=== PATIENT | male | born 1945 | race Two or more races ===

== ENCOUNTER 2017-07-28 20:11 | Inpatient (IN) | payer MEDICARE, OTHER ==
[~2017-07-28] VITALS: Ht 165.1 cm; Wt 70.3 kg
--- NOTE | 2017-07-28 20:15 | NUR ---
BHARAT FROM [facility] DT ETOH- PATIENT RECEIVED AAO4. HOWEVER PATIENT IS NOTED TO BE TALKATIVE. POSSIBLY DT ETOH. SKIN IS WARM TO TOUCH AND NON DIAPHORETIC. AFEBRILE. VSS
--- NOTE | 2017-07-28 20:24 | NUR ---
DR. DUENAS AT BEDSIDE FOR EVALUATION
--- NOTE | 2017-07-28 20:39 | NUR ---
URINE SAMPLE SENT TO LAB
--- NOTE | 2017-07-28 20:39 | NUR ---
IV ACCESSED TO LAC 20. BLOOD SAMPLE SENT
[2017-07-28 20:45] LABS: BASOPHILS # (AUTO) 0.1 /CMM (0.0-0.2); BASOPHILS % (AUTO) 0.7 % (0.0-2.0); EOSINOPHILS # (AUTO) 0.2 /CMM (0.0-0.7); HEMATOCRIT 29 % (39-51); HEMOGLOBIN 9.9 g/dL (13.5-17.5); LYMPHOCYTES % (AUTO) 39.4 % (20.0-44.0); MEAN CORPUSCULAR HEMOGLOBIN 31 PG (26.0-33.0); MEAN CORPUSCULAR HGB CONC 34 g/dl (31.0-36.0); MEAN CORPUSCULAR VOLUME 92 fL (80-96); MONOCYTES # (AUTO) 0.7 /CMM (0.1-1.30); MONOCYTES % (AUTO) 8.5 % (2.0-12.0); NEUTROPHILS # (AUTO) 3.7 /CMM (1.8-8.9); NEUTROPHILS % (AUTO) 48.4 % (43.0-81.0); PLATELET COUNT (AUTO) 231 /CMM (150-450); RDW COEFFICIENT OF VARIATION 12.3 (11.5-15.0); WHITE BLOOD COUNT (AUTO) 7.7 K/uL (4.3-11.0)
[2017-07-28 20:53] LABS: CALCIUM, SERUM 7.9 mg/dL (8.5-10.1); CARBON DIOXIDE 21 mmol/L (21-32); CHLORIDE 99 mmol/L (98-107); CREATININE 1.4 mg/dL (0.6-1.3); GLUCOSE 97 mg/dL (74-106); POTASSIUM 4.1 mmol/L (3.5-5.1); SODIUM SERUM 132 mmol/L (136-145); UREA NITROGEN, BLOOD 43 mg/dL (7-18)
[2017-07-28 20:57] LABS: INR 1.04 (0.87-1.13); PROTHROMBIN TIME 10.8 SECS (9.5-12.7)
--- NOTE | 2017-07-28 20:58 | NUR ---
PATIENTS SON CALLED FOR UPDATE. CLAYTON .
[2017-07-28] MEDS ORDERED: IV NS 0.9% 500 ML BAG IV ONE (21:30)
--- NOTE | 2017-07-28 22:41 | NUR ---
PATIENT LIVES IN [address] HOWEVER, PER PATIENT'S SON CLAYTON--[phone] , PATIENT WILL NO ALIYAH KERI E ACCEPTED THERE DT MULTIPLE EPISODE OF ALCOHOL INTOXICATION. PATIENT WILL BE REFERED TO RESIDENT IN DIAGNOSTIC RADIOLOGY IN AM.
--- NOTE | 2017-07-28 23:33 | NUR ---
Patient on bed, resting comfortably. Connected to tele monitor., vss
--- NOTE | 2017-07-29 04:00 | NUR ---
pt resting comfrotably in [facility]. no signs of distress noted. pt vital signs normal. will cont to monitor pt.
--- NOTE | 2017-07-29 07:20 | NUR ---
PATIENT NO LONGER IV ACCESS, IV HAS BEEN PULLED OUT BY PATIENT. PER DR. CARPENTER, PATIENT WILL NEED IV ACCESS. WILL IMPLEMENT.
--- NOTE | 2017-07-29 07:22 | NUR ---
Paged [facility] -- tongue stitcher Mynor Sahu.
--- NOTE | 2017-07-29 07:25 | NUR ---
NEW IV STARTED ON LAC, 18 G.
[2017-07-29] MEDS ORDERED: CHLORDIAZEPOXIDE HCL 25 MG CAPSULE ONE (07:27)
[2017-07-29] MEDS ORDERED: CHLORDIAZEPOXIDE HCL 25 MG CAPSULE PO ONE (07:30)
[2017-07-29] MEDS ORDERED: IV NS 0.9% 1,000 ML BAG IV ONE (07:30)
[2017-07-29 07:53] LABS: CARBON DIOXIDE 22 mmol/L (21-32); CHLORIDE 107 mmol/L (98-107); CREATININE 1.3 mg/dL (0.6-1.3); GLUCOSE 85 mg/dL (74-106); POTASSIUM 4.4 mmol/L (3.5-5.1); SODIUM SERUM 141 mmol/L (136-145); UREA NITROGEN, BLOOD 33 mg/dL (7-18)
[2017-07-29 07:59] LABS: ALANINE AMINOTRANSFERASE 22 U/L (12-78); ALKALINE PHOSPHATASE 77 U/L (46-116); ASPARTATE AMINOTRANSFERASE 20 U/L (15-37); BILIRUBIN,DIRECT 0.1 mg/dL (0.0-0.2); BILIRUBIN,TOTAL 0.4 mg/dL (0.2-1.0); LIPASE 119 U/L (73-393); TOTAL PROTEIN, SERUM 8.2 g/dL (6.4-8.2)
--- NOTE | 2017-07-29 08:01 | NUR ---
Paged [facility] -- fish boning machine feeder Mynor Sahu.
[2017-07-29] MEDS ORDERED: CLON0.2T PO (08:15)
[2017-07-29] MEDS ORDERED: BENA10TA2 PO (08:15)
--- NOTE | 2017-07-29 08:42 | NUR ---
PT TRANPORTED TO MS BED WITH WHEELCHAIR BY EMT
[2017-07-29 09:00] VITALS: BP 157/66
--- NOTE | 2017-07-29 09:00 | NUR ---
MS RN RECEIVED A NEW ADMISSION FROM ER, 71 YEAR OLD MALE, CAME IN W/ DX OF DEHYDRATION, AWAKE,ALERT,ORIENTED X3,NOT IN ANY FORM OF DISTRESS, RESPIRATIONS EVEN AND UNLABORED,NO SOB NOTED. LUNGS ARE CLEAR,ABDOMEN SOFT,POSITIVE BOWEL SOUNDS, DENIES PAIN AT THIS TIME.WILL MONITOR PATIENT'S CONDITION.
[2017-07-29] MEDS ORDERED: IV NS 0.9% 1,000 ML IV PRN (09:03)
[2017-07-29] MEDS ORDERED: ACETAMINOPHEN 325 MG TABLET PO PRN (09:30)
[2017-07-29] MEDS ORDERED: HYDROCODONE/APAP 5/325MG 1 EACH TABLET PO PRN (09:30)
[2017-07-29] MEDS ORDERED: MAGNESIUM HYDROXIDE 30 ML UDC PO PRN (09:30)
[2017-07-29] MEDS ORDERED: MAG HYDROX/AL HYDROX/SIMETH 30 ML UDC PO PRN (09:30)
[2017-07-29] MEDS ORDERED: Z GUARD REMEDY 2 OZ OINT TP PRN (09:30)
[2017-07-29] MEDS ORDERED: ONDANSETRON HCL/PF 4 MG/2 ML VIAL IVP PRN (09:30)
[2017-07-29] MEDS: CLONIDINE HCL 0.1 MG TABLET PO SCH ×2 (12:42→17:00)
--- NOTE | 2017-07-29 13:00 | NUR ---
MS RN WAS SEEN BY JOEY Guido/ ORDERS MADE AND CARRIED OUT.
--- NOTE | 2017-07-29 14:00 | NUR ---
MS RN WAS SEEN BY PT, WALKS AROUND W/ WALKER,TOLERATED WELL.
--- NOTE | 2017-07-29 15:10 | NUR ---
Social service consult requested by VIDHI Sahu for alcohol abuse. Pt. is a 71 year old male who was admitted to [facility] for dehydration. SW met with pt. bedside. Pt. is alert and oriented x 3 with bouts of confusion. Pt. states he lives in an assisted living located at [address] [place] [address] in [place]. Pt. has two sons Talib and Ameya who are his emergency contact. SW inquired with pt. if he drinks alcohol and how often. Pt. states he drinks a couple of cans of beer but doesn't see what the big deal is. Pt. appears to be in denial of his alcohol abuse. Pt. was found intoxicated on several occasions at his assisted living and according to his son, they are not accepting pt. back. Pt. is open to going to a correction facility. Pt. states he use to drink hard liquor 10 years ago and quit. Pt. quit smoking cigarettes 10 years ago as well. Pt. declined resources to inpatient and outpatient alcohol treatment programs and states he doesn't have any issues. SW is available if needed and no other social service needs are required at this time. Case management is aware regarding rehab placement if deemed appropriate.
[2017-07-29 16:00] VITALS: BP 119/50
--- NOTE | 2017-07-29 18:25 | NUR ---
MS RN ON BED, NO DISTRESS NOTED, ALL NEEDS ATTENDED.
--- NOTE | 2017-07-29 19:20 | NUR ---
RN OPEN NOTES RECEIVED PATIENT AWAKE IN BED. A/O X4. NO SIGNS OF DISTRESS OR DISCOMFORT. BREATHING EVEN AND UNLABORED. IV ACCESS IN LAC WITH NS INFUSING, PATENT AND INTACT, NO SIGNS OF REDNESS OR INFILTRATION. BED IN LOW LOCKED POSITION WITH SIDE RAILS X2. CALL LIGHT WITHIN REACH. WILL CONTINUE TO MONITOR.
[2017-07-29 20:00] VITALS: BP 101/51
[2017-07-29 20:04] VITALS: BP 101/51
--- NOTE | 2017-07-30 02:34 | NUR ---
RN NOTES PATIENT REFUSED IVF X3, STATES SAID HE IS ONLY SLIGHTLY DEHYDRATED AND HE DOES NOT WANT ANOTHER BAG OF FLUIDS. PATIENT EDUCATION REINFORCED. WILL CONTINUE TO MONITOR.
--- NOTE | 2017-07-30 06:41 | NUR ---
RN CLOSING NOTES PATIENT RESTING IN BED, EASILY AROUSABLE TO NAME. A/O X3. NO SIGNS OF DISTRESS OR DISCOMFORT. BREATHING EVEN AND UNLABORED. IV ACCESS IN LAC, PATENT AND INTACT, NO SIGNS OF REDNESS OR INFILTRATION. ALL NEEDS MET. NO SIGNIFICANT CHANGES THROUGH THE NIGHT. BED IN LOW LOCKED POSITION WITH SIDE RAILS X2. CALL LIGHT WITHIN REACH. WILL ENDORSE TO AM SHIFT FOR CAMILA.
--- NOTE | 2017-07-30 07:39 | NUR ---
MS RN OPENING NOTE PATIENT IS ALERT AND ORIENTEDx4. NO PAIN AT THIS TIME. NO SOB OR DISTRESS NOTED. CALL LIGHT WITHIN REACH. SAFETY MEASURES IMPLEMENTED. ABLE TO COMMUNICATE NEEDS. IV INTACT AND PATENT NO REDNESS OR SWELLING NOTED. REFUSING IV FLUIDS AT THIS TIME, EXPLAINED RISKS AND BENEFITS BUT PATIENT STILL REFUSING. WILL CONTINUE TO MONITOR
[2017-07-30 08:00] VITALS: BP 137/63
[2017-07-30] MEDS: CLONIDINE HCL 0.1 MG TABLET PO SCH ×2 (08:18→16:39)
[2017-07-30] MEDS: BENAZEPRIL HCL 10 MG TABLET PO SCH (08:18)
[2017-07-30 11:44] LABS: BASOPHILS % (AUTO) 0.4 % (0.0-2.0); EOSINOPHILS # (AUTO) 0.3 /CMM (0.0-0.7); EOSINOPHILS % (AUTO) 4.5 % (0.0-6.0); HEMATOCRIT 32 % (39-51); HEMOGLOBIN 10.5 g/dL (13.5-17.5); LYMPHOCYTES # (AUTO) 1.5 /CMM (0.8-4.8); LYMPHOCYTES % (AUTO) 23.4 % (20.0-44.0); MEAN CORPUSCULAR HEMOGLOBIN 31 PG (26.0-33.0); MEAN CORPUSCULAR HGB CONC 33 g/dl (31.0-36.0); MEAN CORPUSCULAR VOLUME 93 fL (80-96); MONOCYTES # (AUTO) 0.3 /CMM (0.1-1.30); NEUTROPHILS # (AUTO) 4.2 /CMM (1.8-8.9); NEUTROPHILS % (AUTO) 67.7 % (43.0-81.0); PLATELET COUNT (AUTO) 157 /CMM (150-450); RDW COEFFICIENT OF VARIATION 13.6 (11.5-15.0); RED BLOOD CELL COUNT(AUTO) 3.41 MIL/uL (4.5-6.0); WHITE BLOOD COUNT (AUTO) 6.3 K/uL (4.3-11.0)
[2017-07-30 11:58] LABS: CALCIUM, SERUM 8.4 mg/dL (8.5-10.1); CARBON DIOXIDE 26 mmol/L (21-32); CHLORIDE 109 mmol/L (98-107); CREATININE 1.2 mg/dL (0.6-1.3); GLUCOSE 117 mg/dL (74-106); MAGNESIUM 1.8 mg/dL (1.8-2.4); PHOSPHORUS 2.7 mg/dL (2.5-4.9); POTASSIUM 4.6 mmol/L (3.5-5.1); SODIUM SERUM 143 mmol/L (136-145); UREA NITROGEN, BLOOD 27 mg/dL (7-18)
[2017-07-30 13:01] LABS: IRON, SERUM 104 ug/dl (50-175); TOTAL IRON BINDING CAPACITY 170 ug/dl (250-450)
[2017-07-30 13:27] LABS: CHOLESTEROL 155 mg/dL (<200); HDL CHOLESTEROL 97 mg/dL (40-60); LDL 52 mg/dL (0-99); THYROID STIMULATING HORMONE 5.986 uIU/mL (0.358-3.74); TRIGLYCERIDES 54 mg/dL (30-150)
[2017-07-30 16:00] VITALS: BP 98/52
--- NOTE | 2017-07-30 18:47 | NUR ---
MS RN CLOSING NOTE PATIENT IS ALERT AND ORIENTED x4. PERIODS OF CONFUSION. REDIRECTABLE. NO PAIN AT THIS TIME. NO SOB OR DISTRESS NOTED. CALL LIGHT WITHIN REACH AT ALL TIMES. SAFETY MEASURES IMPLEMENTED. ABLE TO COMMUNICATE NEEDS. IV INTACT AND PATENT NO REDNESS OR SWELLING NOTED. URINE AND STOOL SAMPLE COLLECTED. NOTIFIED LAB FOR PICKUP. ABLE TO COMMUNICATE NEEDS. CASE MANAGEMENT FOLLOWING UP WITH BOARD AND CARE FOR PENDING PLACEMENT-PLEASE FOLLOW UP. WILL ENDORSE TO SAIL REPAIRER NURSE.
--- NOTE | 2017-07-30 19:30 | NUR ---
MS RN NOTE PATIENT RECEIVED IN BED. AWAKE ALERT AND ORIENTED. DENIES ANY PAIN OR DISCOMFORT. IV SITE TO LAC INTACT. NO REDNESS NOTED. BED LOCKED AND IN LOWEST POSITION, SIDE RAILS UP, CALL LIGHT WITHIN REACH. WILL CONTINUE TO MONITOR.
[2017-07-30 20:00] VITALS: BP 124/65
[2017-07-30 22:00] VITALS: BP 124/65
--- NOTE | 2017-07-31 07:41 | NUR ---
JAELYN POLANCO RN: INITIAL NOTES RECEIVED PT ALERT AND ORIENTED X4. ON REGULAR DIET. NO DISTRESS NOTED. NO PAIN NOTED. NO SOB NOTED. LAC #18. NO IVF RUNNING. RESTING COMFORTABLY IN BED. CALL LIGHT WITHIN REACH.
[2017-07-31 08:00] VITALS: BP 141/69
[2017-07-31] MEDS: BENAZEPRIL HCL 10 MG TABLET PO SCH (08:54)
[2017-07-31] MEDS: CLONIDINE HCL 0.1 MG TABLET PO SCH ×2 (08:54→17:00)
--- NOTE | 2017-07-31 11:51 | NUR ---
IAIN,SYSTEMS MECHANIC CALLED SAYING THAT THE PT WASN'T ACCEPTED IN [facility] AND WILL BE EVALUATED BY ANOTHER STAFF FROM A DIFFERENT INDEPENDENT LIVING FACILITY TOMORROW AT 0900 WHICH IS CALLED [facility].
--- NOTE | 2017-07-31 14:39 | NUR ---
TERRY met with pt's son Ameya and gave him the following resources: list of sober living homes in [facility]; [facility] ; and list of substance abuse program in [facility] which include [facility] , [facility] . Ameya informed TERRY that pt. has been going in and out of nursing homes and independent livings due to his alcoholism. Pt. to be evaluated tomorrow at 9AM by Kenneth from a sober living home.
[2017-07-31 16:00] VITALS: BP 109/58
--- NOTE | 2017-07-31 18:17 | NUR ---
MED SURGE RN: CLOSING NOTE PT ALERT AND ORIENTED X3. TOOK ALL MEDICATIONS ON TIME. NO ADVERSE REACTIONS NOTED. NO PAIN NOTED. NO DISTRESS NOTED. ABLE TO AMBULATE INDEPENDENTLY. PT REFUSED LAB DRAW X3. EXPLAINED ALL THE RISKS AND BENEFITS. NO N/V NOTED. AWAITING PLACEMENT FOR D/C. RESTING COMFORTABLY IN BED. CALL LIGHT WITHIN REACH.
--- NOTE | 2017-07-31 19:29 | NUR ---
MS/RN OPENING NOTES PATIENT SITTING IN CHAIR, READING A BOOK AND WALKING. INFORMED AND REMIND FOR SAFETY TO PREVENT FALL. ALERT X 2. RESTING COMFORTABLY IN CHAIR WHILE READING A BOOK. NO S/S OF DISCOMFORT. RESPIRATION EVEN AND UNLABORED. WILL CONTINUE TO MONITOR,
[2017-07-31 19:34] VITALS: BP 126/69
[2017-07-31 20:00] VITALS: BP 126/69
--- NOTE | 2017-08-01 06:20 | NUR ---
311-1 ms/rn closing notes PATIENT ABLE TO MAINTAIN ACTIVITY LEVEL BY READING A BOOK, PROVIDED FLUIDS. SLEPT ATLEAST 5 TO 6 HOURS, RESPIRATIONS GOO. WILL CONTINUE TO MONITOR. WILL ENDORSE TO AM RN REGARDING CAMILA.
--- NOTE | 2017-08-01 07:18 | NUR ---
MS/RN OPENING NOTE PATIENT RECEIVED IN BED IN NO ACUTE SIGNS OF DISTRESS. ALERT AND ORIENTED x4, NO C/O PAIN OR DISCOMFORTS AT THIS TIME. ON ROOM AIR, BREATHING EVEN AND UNLABORED. CALL LIGHT WITHIN REACH. SAFETY MEASURES IMPLEMENTED. IV ACCESS ON LEFT AC INTACT AND PATENT, NO REDNESS OR SWELLING NOTED. WILL CONTINUE TO MONITOR
[2017-08-01 08:00] VITALS: BP 107/47
[2017-08-01] MEDS: BENAZEPRIL HCL 10 MG TABLET PO SCH (09:00)
[2017-08-01] MEDS: CLONIDINE HCL 0.1 MG TABLET PO SCH ×2 (09:00→16:33)
--- NOTE | 2017-08-01 10:29 | NUR ---
RN NOTES PATIENT BEING TAKEN TO O.R FOR EGD VIA HER BED AT THIS TIME. PRE-OP CHECKLIST DONE.
[2017-08-01 16:00] VITALS: BP 110/58
--- NOTE | 2017-08-01 19:05 | NUR ---
M/S RN CLOSING NOTE PT RESTING IN BED ALERT AND ORIENTED X3. NO SIGNIFICANT CHANGES NOTED THROUGHOUT THE DAY. TOOK ALL MEDICATIONS WITH NO ADVERSE REACTIONS NOTED. NO PAIN VOICED DURING TOUR. ON ROOM AIR, NO SOB OR ACUTE DISTRESS NOTED. AWAITING PLACEMENT FOR D/C. CALL LIGHT WITHIN REACH. ALL NEEDS ATTENDED WELL. WILL ENDORSED TO GUEST SERVICE MANAGER NURSE FOR CAMILA.
--- NOTE | 2017-08-01 20:00 | NUR ---
MS/RN RECEIVE PATIENT AWAKE, ALERT, ORIENTED, COMFORTABLE, NO C/O PAIN, NO DISTRESS NOTED, CALL LIGHT IN REACH. WILL MONITOR.
[2017-08-01 20:28] VITALS: BP 134/67
--- NOTE | 2017-08-02 | NUR ---
MS/RN PATIENT IS SLEEPING, EASILY AROUSABLE, APPEAR COMFORTABLE, NO SIGNS OF DISTRESS NOTED, CALL LIGHT IN REACH. WILL CONTINUE TO MONITOR.
--- NOTE | 2017-08-02 06:50 | NUR ---
MS/RN PATIENT IS AWAKE, ALERT, ORIENTED, COMFORTABLE, NO CHANGE IN CONDITION, ALL NEEDS ATTENDED AT THIS TIME. WILL CONTINUE TO MONITOR.
--- NOTE | 2017-08-02 07:28 | NUR ---
MS/RN OPENING NOTES PATIENT RECEIVED AWAKE IN BED IN NO ACUTE SIGNS OF DISTRESS. ALERT AND ORIENTED x4, AMBULATORY AND DENIES ANY PAIN OR DISCOMFORTS AT THIS TIME. ON ROOM AIR, BREATHING EVEN AND UNLABORED. IV ACCESS ON LEFT AC INTACT AND PATENT, NO REDNESS OR SWELLING NOTED. CALL LIGHT WITHIN REACH. SAFETY MEASURES IN PLACED. WILL CONTINUE TO MONITOR PT ACCORDINGLY.
[2017-08-02 08:00] VITALS: BP 150/64
[2017-08-02 08:25] VITALS: BP 150/64
[2017-08-02] MEDS: BENAZEPRIL HCL 10 MG TABLET PO SCH (08:40)
[2017-08-02] MEDS: CLONIDINE HCL 0.1 MG TABLET PO SCH ×2 (08:40→16:16)
[2017-08-02 16:00] VITALS: BP 111/60
[2017-08-02 16:16] VITALS: BP 111/60
--- NOTE | 2017-08-02 17:44 | NUR ---
MS/RN DISCHARGED NOTES PATIENT DISCHARGED TO [facility], [id number], [place] [address], TEL [phone] IN STABLE CONDITION. LEFT UNIT AT [address] ACCOMPANIED BY THIS IDENTIFICATION AND RECORDS COMMANDER TO A WAITING TAXI OUTSIDE THE LOBBY. A/O X 3, NO COMPLAINTS OF PAIN OR DISCOMFORTS DURING DISCHARGE. V/S TAKEN AND WNL. PHOTOS OF SKIN TAKEN AND FILED ON CHART. BELONGINGS CHECKED, COUNTED AND FILED ON CHART. PT REFUSED PNA VACCINE. HEALTH TEACHINGS GIVEN AND VERBALIZED UNDERSTANDING. MD, MAIL DISTRIBUTOR AND CHARGE NURSE AWARE OF DISCHARGE.
== END 2017-08-02 17:54 | disposition home or self-care (01) | DRG 896 ==
LOC: ER 20:12 → MED 07-29 09:07
PROVIDERS: ADMIT Nurse Practitioner Acute Care; ATTEND Nurse Practitioner Acute Care
DX: F10.129 Alcohol abuse with intoxication, unspecified (principal); N17.0 Acute kidney failure with tubular necrosis; G92 Toxic encephalopathy; E87.1 Hypo-osmolality and hyponatremia; E86.1 Hypovolemia; G31.84 Mild cognitive impairment of uncertain or unknown etiology; I10 Essential (primary) hypertension; D63.8 Anemia in other chronic diseases classified elsewhere; Y90.9 Presence of alcohol in blood, level not specified
CPT/HCPCS: 36415; 70450-TC; 80048-TC; 80061-TC; 80076-TC; 80305; 82272-TC; 82962-TC; 83540-TC; 83690-TC; 83735-TC; 84100-TC; 84443-TC; 85025-TC; 85730-TC; 87081-TC; J7040